=== PATIENT | female | born 1970 | race Caucasian/White ===

== ENCOUNTER 2024-03-09 12:17 | Emergency (ER) | payer OTHER, SELFPAY ==
[2024-03-09 12:25] VITALS: BP 132/73; PULSE 63; RESP 18; TEMP 36.6; O2SAT 99
--- NOTE | 2024-03-09 14:44 | ED.GENADULT ---
HPI - General Adult General Chief complaint: Extremity Injury, Lower Stated complaint: fell, toe nail removed Time Seen by Provider: 03/09/24 13:47 History of Present Illness HPI narrative: Patient is a 53-year-old female with history of anxiety, restless legs syndrome here with a left toenail injury. She states that last night she was crying bag of mulch her back yd and tripped and fell over her flip-flops injuring her great toe nail. She states that she wrapped upper foot, applied antibiotic ointment and went to sleep. This morning she attempted to go to 2 separate urgent cares as well as walk into a podiatry clinic, there was reportedly no on staff at either facilities that the comfortable with treating this toenail and there was no meat stock clerk on site. This prompted patient to come into the emergency department for evaluation. She states the pain is severe, sharp, located in her great toe with a extremely displaced toenail sticking straight up. She denies any additional injuries Related Data Allergies Allergy/AdvReac Type Severity Reaction Status Date / Time benzoyl peroxide Allergy Unknown Verified 07/20/19 16:29 Review of Systems Review of Systems: All systems reviewed & are unremarkable except as noted in HPI and below Exam Narrative: GENERAL: Well-appearing, well-nourished, and in no acute distress. HEAD: Normocephalic, atraumatic. CHEST: Clear to auscultation. No respiratory distress. HEART: Regular rate and rhythm. Normal peripheral pulses. ABDOMEN: Soft, nontender, nondistended. EXTREMITIES: Normal range of motion. patient has what appears to be a damaged nail and nailbed on the left great toe. The nail appears to be partially displaced from the nail bed and sitting at a 90 degree angle from her foot. No active bleeding. Mild edema and erythema to the great toe. SKIN: Warm, dry, no rash. PSYCH: Anxious appearing Course Course Emergency Course: Chart review performed. Patient here with toe pain. No prior visits in our system. Triage vitals normal. Patient seen evaluated, nontoxic appearing. She has what appears to be a damage nail bed of her left great toe with partial dislocation of the toenail. At this point I do not feel that the nail can be reapproximated in its anatomical position and she will require nail removal. Ring block performed with lidocaine with some pain relief. Patient also extremely anxious, has required day as a pain in the past to help with her panic attacks during procedures. Small dose of diazepam given the patient. Needle removed. Antibiotic ointment and sterile dressing applied. Advised she should change his dressing twice daily. Will start her on prophylactic antibiotics. Will additionally start her on tramadol for pain. Advised follow-up with podiatry or her primary care doctor. The results of pertinent diagnostic studies and exam findings were discussed. The patient?s provisional diagnosis and plan of care were discussed with the patient and present family. The patient and/or present family expressed understanding of the diagnosis and plan. The nurse was instructed to provide written instructions and appropriate follow-up information. The patient understands their need and responsibility to obtain additional follow-up as instructed. The risks of medications administered and prescribed were discussed with the patient and family present. Vital Signs Vital signs: Vital Signs Temperature 97.9 F 03/09/24 12:25 Pulse Rate 63 03/09/24 12:25 Respiratory Rate 18 03/09/24 12:25 Blood Pressure 132/73 03/09/24 12:25 Pulse Oximetry 99 03/09/24 12:25 Oxygen Delivery Room Air 03/09/24 12:25 Temperature 97.2 F L 03/09/24 16:41 Pulse Rate 70 03/09/24 16:41 Respiratory Rate 20 03/09/24 16:41 Blood Pressure 144/86 H 03/09/24 16:41 Pulse Oximetry 100 03/09/24 16:41 Oxygen Delivery Room Air 03/09/24 12:25 Procedures Other Procedure Pr
[2024-03-09] MEDS: LIDOCAINE HCL 1% LOCAL INJ 10 ML VIAL (15:09)
[2024-03-09] MEDS: diazePAM (*CRX) 5 MG TABLET 10 MG PO (16:03)
--- NOTE | 2024-03-09 16:03 | PC.NURSE ---
Pt refused to take both 5mg Valium, ERP Dr Rogers are aware and is at bedside. Verbalized okay for pt to take 5mg.
[2024-03-09 16:41] VITALS: BP 144/86; PULSE 70; RESP 20; TEMP 36.2; O2SAT 100
== END 2024-03-09 16:43 | disposition home or self-care (01) ==
PROVIDERS: Emergency Provider Student in an Organized Health Care Education/Training Program
DX: S90.212A Contusion of left great toe with damage to nail, initial encounter (principal); W18.30XA Fall on same level, unspecified, initial encounter
CPT/HCPCS: 11750; 99283; A9270